=== PATIENT | female | born 1975 | race African-American/Black ===

== ENCOUNTER 2021-04-01 07:59 | Emergency (ER) | payer MEDICAID ==
[~2021-04-01] VITALS: Ht 172.7 cm; Wt 78.0 kg
[2021-04-01] MEDS ORDERED: KETOROLAC 30MG/ML VIAL IV STA (08:39)
[2021-04-01] MEDS ORDERED: ONDANSETRON HCL 4MG/2ML INJ IV STA ×2 (08:39→11:22)
[2021-04-01] MEDS ORDERED: LORAZEPAM 2MG/ML CPJ IV ONE (08:45)
[2021-04-01] MEDS ORDERED: SODIUM CHLORIDE 0.9% 1,000 ML IV ONE (08:45)
[2021-04-01 08:55] LABS: EOSINOPHILS % 1.5 % (0.0-5.0); HEMOGLOBIN. 14.7 g/dL (12.0-16.0); LYMPHOCYTES % 23.8 % (20.0-50.0); MEAN CORPUSCULAR HEMOGLOBIN 32.1 pg (28.0-32.0); MONOCYTES % 5.3 % (2.0-8.0); NEUTROPHILS % 68.4 % (40.0-76.0); PLATELET 355 x1000/uL (130-400); RED BLOOD CELL COUNT 4.57 mill/uL (4.2-5.4); RED CELL DISTRIBUTION WIDTH 14.9 % (11.6-14.6)
[2021-04-01 08:57] LABS: CHLORIDE 106 mEq/L (98-107)
[2021-04-01 09:01] LABS: ETHANOL BLOOD < 10 mg/dL
[2021-04-01 09:59] LABS: HCG SCREEN NEGATIVE
[2021-04-01] MEDS ORDERED: MORPHINE SULFATE 4 MG/ML CPJ (NOT FOR IM USE) IV STA (11:22)
[2021-04-01 11:25] LABS: CLARITY URINE CLEAR (CLEAR); COLOR URINE YELLOW (YELLOW); KETONES URINE 2+ (NEGATIVE); LEUKOCYTE ESTERASE URINE NEGATIVE (NEGATIVE); NITRITE URINE NEGATIVE (NEGATIVE); OCCULT BLOOD URINE NEGATIVE (NEGATIVE); PH URINE 7.5 (4.5-8.0); PROTEIN URINE TRACE (NEGATIVE); SPECIFIC GRAVITY URINE 1.018 (1.005-1.030); UROBILINOGEN URINE 0.2 E.U./dL (0.2-1.0)
[2021-04-01 11:45] LABS: *AMPHETAMINES SCREEN URINE NEGATIVE (NEGATIVE); *BARBITURATES SCREEN URINE NEGATIVE (NEGATIVE); *BENZODIAZEPINES SCREEN URINE NEGATIVE (NEGATIVE)
[2021-04-01 11:46] LABS: OPIATES URINE SCREEN NEGATIVE (NEGATIVE)
[2021-04-01 11:47] LABS: PHENCYCLIDINE URINE SCREEN NEGATIVE (NEGATIVE)
[2021-04-01 11:48] LABS: *COCAINE SCREEN URINE PRESUMTIVE POSITIVE (NEGATIVE); CANNABINOID URINE SCREEN PRESUMTIVE POSITIVE (NEGATIVE); METHADONE URINE SCREEN NEGATIVE (NEGATIVE)
[2021-04-01] MEDS ORDERED: OMEP40CA12 MT (11:54)
[2021-04-01] MEDS ORDERED: ONDA4TAB5 MT (11:56)
[2021-04-01 13:30] VITALS: BP 156/80
== END 2021-04-01 13:30 | disposition home or self-care (01) ==
LOC: ER 08:10
DX: T40.5X1A Poisoning by cocaine, accidental (unintentional), initial encounter (principal); R10.33 Periumbilical pain; I16.0 Hypertensive urgency; Y92.89 Other specified places as the place of occurrence of the external cause
CPT/HCPCS: 36415; 74176; 80053; 80305; 80320; 81003; 83690; 84703; 85025; 93005; 96361; 96374; 96375; 96376; 99285; J1885; J2060; J2270; J2405; J7030; Z7610; G0480

== ENCOUNTER 2023-03-16 18:42 | Inpatient (IN) | payer MEDICAID ==
[~2023-03-16] VITALS: Ht 147.3 cm; Wt 57.8 kg
[~2023-03-16 18:42] MED LIST: OMEP40CA20 MT; ONDA4TAB5 MT
[2023-03-16 21:20] LABS: BASOPHILS % 0.8 % (0.0-2.0); EOSINOPHILS % 2.7 % (0.0-5.0); LYMPHOCYTES % 19.8 % (20.0-50.0); MEAN CORPUSCULAR HEMOGLOBIN 35.3 pg (28.0-32.0); MEAN CORPUSCULAR VOLUME 105.3 fL (81.0-99.0); MEAN PLATELET VOLUME 6.9 fl (7.4-10.4); MONOCYTES % 8.7 % (2.0-8.0); PLATELET 338 x1000/uL (130-400); RED BLOOD CELL COUNT 1.78 mill/uL (4.2-5.4); RED CELL DISTRIBUTION WIDTH 16.4 % (11.6-14.6)
[2023-03-16 21:26] LABS: CHLORIDE 109 mEq/L (98-107)
[2023-03-16 21:30] LABS: HEMATOCRIT. 18.7 % (36.0-48.0); HEMOGLOBIN. 6.3 g/dL (12.0-16.0)
[2023-03-16 21:34] LABS: HCG SCREEN NEGATIVE
[2023-03-16] MEDS ORDERED: DEXTROSE 50% WATER 50ML SYRINGE IV NR (22:30)
[2023-03-16] MEDS ORDERED: ALBUTEROL (0.083%) 2.5MG/3ML NEB HHN NR (22:30)
[2023-03-16] MEDS ORDERED: CALCIUM CHLORIDE 1GM/10ML SYR IV NR (22:30)
[2023-03-16] MEDS ORDERED: INSULIN REGULAR (HUMULIN R) 300UNITS/3ML VIAL IV NR (22:30)
[2023-03-16] MEDS ORDERED: SODIUM BICARBONATE 8.4% 1 MEQ/ML 50ML SYR IV NR (22:30)
[2023-03-16] MEDS ORDERED: LABETALOL 5MG/ML SYR 20 MG/4 ML SYRINGE IV ONE (23:15)
[2023-03-16] MEDS ORDERED: MORPHINE SULFATE 4 MG/ML CPJ (NOT FOR IM USE) IV ONE (23:15)
[2023-03-17] VITALS (16 sets, daily range): BP systolic 132–196; BP diastolic 77–100
[2023-03-17] MEDS ORDERED: MAGNESIUM/ALUMINUM HYDROXIDE/SIMETHICONE 30ML UDC PO PRN (07:00)
[2023-03-17] MEDS ORDERED: GUAIFENESIN 200MG/10ML SUGAR FREE UDC PO PRN (07:00)
[2023-03-17] MEDS ORDERED: ONDANSETRON HCL 4MG/2ML INJ IV PRN (07:00)
[2023-03-17] MEDS ORDERED: HYDRALAZINE HCL 25MG TABLET PO PRN (07:00)
[2023-03-17] MEDS ORDERED: ACETAMINOPHEN 325MG TABLET PO PRN ×2 (07:00)
[2023-03-17 09:05] LABS: BG BASE EXCESS -9.5 mmol/L (-2.0-2.0); BG CARBOXYHEMOGLOBIN 0.3 % (0.5-1.5); BG FRACTION INSPIRED OXYGEN 21; BG HCO3 ACT 16.8 mmol/L (22.0-26.0); BG METHEMOGLOBIN 1.4 % (0.0-1.5); BG OXYGEN SATURATION 76.6 % (92.0-98.5); BG OXYHEMOGLOBIN 75.3 % (94.0-97.0); BG PCO2 38.9 mmHg (35.0-45.0); BG PH 7.254 (7.350-7.450); BG PO2 46.9 mmHg (75.0-100.0); BG SAMPLE SITE RIGHT BRACHIAL; BG TOTAL HEMOGLOBIN 6.9 g/dL (12.0-18.0); BG VENT MODE ROOM AIR
[2023-03-17] MEDS ORDERED: NEPVIT PO (09:54)
[2023-03-17] MEDS ORDERED: VALA500T55 PO (09:54)
[2023-03-17] MEDS ORDERED: CLON0.1T PO (09:54)
[2023-03-17] MEDS ORDERED: LISI40TA20 PO (09:54)
[2023-03-17] MEDS ORDERED: GABA-529 PO (09:54)
[2023-03-17] MEDS ORDERED: FURO80TA87 PO (09:54)
[2023-03-17] MEDS ORDERED: NIFE60TA78 PO (09:54)
[2023-03-17] MEDS ORDERED: LABE200T9 PO (09:54)
[2023-03-17] MEDS ORDERED: NITR0.4T49 SL (09:54)
[2023-03-17] MEDS ORDERED: PANT40TA51 PO (09:54)
[2023-03-17] MEDS: ENOXAPARIN 30MG/0.3ML SYR SUBCUT SCH (10:53)
[2023-03-17 13:24] LABS: MEAN CORPUSCULAR HEMOGLOBIN 35.6 pg (28.0-32.0); MEAN CORPUSCULAR VOLUME 102.6 fL (81.0-99.0); MEAN PLATELET VOLUME 7.1 fl (7.4-10.4); PLATELET 320 x1000/uL (130-400); RED BLOOD CELL COUNT 1.67 mill/uL (4.2-5.4); RED CELL DISTRIBUTION WIDTH 15.7 % (11.6-14.6)
[2023-03-17 13:36] LABS: HEMATOCRIT. 17.1 % (36.0-48.0); HEMOGLOBIN. 5.9 g/dL (12.0-16.0)
[2023-03-17 13:38] LABS: CHLORIDE 104 mEq/L (98-107)
[2023-03-17 13:56] LABS: PHOSPHORUS 2.2 mg/dL (2.5-4.9)
[2023-03-17 14:20] LABS: HEPATITIS B SURFACE ANTIGEN NEGATIVE; NUCLEATED RED BLOOD CELLS 1 /100 WBC; PLATELET ESTIMATE NORMAL
[2023-03-17 15:56] LABS: T4 FREE 0.78 ng/dL (0.76-1.46)
[2023-03-17] MEDS ORDERED: DIPHENHYDRAMINE HCL/ZINC ACET 28 GM CREAM TOP PRN (16:00)
[2023-03-17 16:08] LABS: VITAMIN B12 SERUM 490 pg/mL (211-911)
[2023-03-17] MEDS ORDERED: LABETALOL HCL 200MG TABLET PO SCH (17:00)
[2023-03-17] MEDS ORDERED: EPOETIN ALFA-EPBX 4,000 UNIT/ML VIAL SUBCUT SCH (21:00)
[2023-03-17 21:52] LABS: BASOPHILS % 0.6 % (0.0-2.0); EOSINOPHILS % 2.3 % (0.0-5.0); LYMPHOCYTES % 20.8 % (20.0-50.0); MEAN CORPUSCULAR HEMOGLOBIN 34.5 pg (28.0-32.0); MEAN PLATELET VOLUME 7.4 fl (7.4-10.4); MONOCYTES % 10.4 % (2.0-8.0); NEUTROPHILS % 65.9 % (40.0-76.0); PLATELET 302 x1000/uL (130-400); RED BLOOD CELL COUNT 2.13 mill/uL (4.2-5.4); RED CELL DISTRIBUTION WIDTH 16.9 % (11.6-14.6)
[2023-03-17 22:04] LABS: HEMATOCRIT. 20.9 % (36.0-48.0)
[2023-03-17 22:06] LABS: HEMOGLOBIN. 7.3 g/dL (12.0-16.0)
[2023-03-18] VITALS (12 sets, daily range): BP systolic 133–170; BP diastolic 80–101
[2023-03-18 06:11] LABS: FERRITIN 348 ng/mL (10-291)
[2023-03-18 06:58] LABS: BASOPHILS % 0.7 % (0.0-2.0); EOSINOPHILS % 2.2 % (0.0-5.0); HEMATOCRIT. 21.8 % (36.0-48.0); HEMOGLOBIN. 7.5 g/dL (12.0-16.0); MEAN CORPUSCULAR HEMOGLOBIN 34.5 pg (28.0-32.0); MEAN CORPUSCULAR VOLUME 100.2 fL (81.0-99.0); MEAN PLATELET VOLUME 7.3 fl (7.4-10.4); MONOCYTES % 8.6 % (2.0-8.0); NEUTROPHILS % 67.5 % (40.0-76.0); PLATELET 300 x1000/uL (130-400); RED BLOOD CELL COUNT 2.18 mill/uL (4.2-5.4); RED CELL DISTRIBUTION WIDTH 17.7 % (11.6-14.6)
[2023-03-18] MEDS: LISINOPRIL 40MG TABLET PO SCH ×2 (08:35→09:00)
[2023-03-18] MEDS: LABETALOL HCL 200MG TABLET PO SCH ×3 (08:35→16:41)
[2023-03-18] MEDS: ENOXAPARIN 30MG/0.3ML SYR SUBCUT SCH (11:36)
== END 2023-03-18 17:15 | disposition home or self-care (01) | DRG 425 ==
LOC: ER 18:42 → MICUSO 03-17 01:54 → EDBEDREQDT 03-17 02:59 → EDBEDREQ 03-17 02:59 → EDBEDREQTM 03-17 02:59 → 7WST 03-17 08:34
PROVIDERS: ADMIT Internal Medicine; ATTEND Internal Medicine
PROC: 5A1D70Z Performance of Urinary Filtration, Intermittent, Less than 6 Hours Per Day (ICD-10-PCS; principal; 2023-03-17)
PROC: 30233N1 Transfusion of Nonautologous Red Blood Cells into Peripheral Vein, Percutaneous Approach (ICD-10-PCS; 2023-03-17)
PROC: 5A1D70Z Performance of Urinary Filtration, Intermittent, Less than 6 Hours Per Day (ICD-10-PCS; 2023-03-17)
DX: E87.5 Hyperkalemia (principal); I12.0 Hypertensive chronic kidney disease with stage 5 chronic kidney disease or end stage renal disease; E46 Unspecified protein-calorie malnutrition; N18.6 End stage renal disease; D63.1 Anemia in chronic kidney disease; E87.1 Hypo-osmolality and hyponatremia; E87.70 Fluid overload, unspecified; R06.03 Acute respiratory distress; D53.9 Nutritional anemia, unspecified; R79.89 Other specified abnormal findings of blood chemistry; F10.20 Alcohol dependence, uncomplicated; F17.210 Nicotine dependence, cigarettes, uncomplicated; Z99.2 Dependence on renal dialysis; Z68.26 Body mass index [BMI] 26.0-26.9, adult; Z79.899 Other long term (current) drug therapy
CPT/HCPCS: 36415; 36600; 71045; 80048; 80053; 80061; 82375; 82607; 82728; 82746; 82805; 82962; 83540; 83550; 83735; 83880; 84100; 84439; 84443; 84484; 84703; 85025; 86705; 86709; 86803; 86850; 86900; 86920; 87340; 90935; 93005; 93306; 97161; 99291; J0885; J1650; J1815; J2270; J3490; P9016

== ENCOUNTER 2024-10-14 | Emergency (ER) | payer MEDICAID ==
[~2024-10-14] VITALS: Ht 160 cm; Wt 61.0 kg
[~2024-10-14] MED LIST changes: +AMOX1TAB49 PO; +FOLI0.8T53 PO; +FURO80TA3 PO; +LISI40TA13 PO; +METR-167 PO; +MINO2.5T19 PO; +NIFE-49 PO; -OMEP40CA20 MT; -ONDA4TAB5 MT; +PANT40TA51 PO; +SEVE800T8 PO
[2024-10-14 00:09] VITALS: BP 196/119; PULSE 85; RESP 16; TEMP 97.8; O2SAT 94
[2024-10-16] MEDS ORDERED: LEVO250T74 MT (12:38)
== END 2024-10-14 02:10 | disposition left against medical advice (07) ==
LOC: ER 00:11
DX: M54.9 Dorsalgia, unspecified (principal); Z53.21 Procedure and treatment not carried out due to patient leaving prior to being seen by health care provider

== ENCOUNTER 2025-01-19 11:53 | Emergency (ER) | payer MEDICAID ==
[~2025-01-19] VITALS: Ht 162.6 cm; Wt 68.0 kg
[~2025-01-19 11:53] MED LIST changes: -AMOX1TAB49 PO; -METR-167 PO
[2025-01-19 11:55] VITALS: BP 0/0; PULSE 0; RESP 16; O2SAT 80
[2025-01-19] MEDS ORDERED: NOREPINEPHRINE 8MG/250ML PMX 250 ML IV NR (12:03)
[2025-01-19] MEDS ORDERED: NOREPINEPHRINE 8MG/250ML PMX 250 ML IV ONE (12:03)
== END 2025-01-19 15:49 ==
LOC: ER 11:53
DX: I46.9 Cardiac arrest, cause unspecified (principal); N18.6 End stage renal disease; Z79.899 Other long term (current) drug therapy; Z99.2 Dependence on renal dialysis
CPT/HCPCS: 82962; 99291; J3490; Z7610